=== PATIENT | female | born 1935 | race Caucasian/White ===

== ENCOUNTER 2020-02-22 13:09 | Emergency (ER) | payer MEDICARE, SELFPAY ==
[2020-02-22 13:12] VITALS: BP 205/110; PULSE 84; RESP 18; TEMP 36.3; O2SAT 93; BMI 25.6
--- NOTE | 2020-02-22 13:49 | EKG12_ITS ---
Test Reason : Blood Pressure : / mmHG Vent. Rate : 084 BPM Atrial Rate : 288 BPM P-R Int : 000 ms QRS Dur : 074 ms QT Int : 364 ms P-R-T Axes : 000 018 -52 degrees QTc Int : 430 ms Atrial Fibrillation Nonspecific ST & T wave abnormality Abnormal ECG Confirmed by CRAIG GONZALEZ, CARLOS ([id number]), book or script editor ALEISHA BRYAN ([id number]) on 02/26/2020 9:55:08 AM Referred By: ELYSE Confirmed By:CARLOS SRINIVASAN MD
--- NOTE | 2020-02-22 13:49 | CT_ITS ---
STUDY: CT ABDOMEN AND PELVIS WITH CONTRAST REASON FOR EXAM: Female, 84 years old. Bilateral flank pain nausea vomiting bloating RADIATION DOSAGE (If Supplied By Facility): CTDIvol = ( 8.86 ) mGy, DLP = ( 626.03 ) mGycm TECHNIQUE: CT images were obtained from the dome of the diaphragm to the symphysis pubis without oral contrast. Oral and amp; IV Gastrografin and amp; 100mL Isovue-300 was administered. Sagittal and coronal images were reconstructed. Individualized dose optimization techniques were used for this CT. COMPARISON: None. FINDINGS: Lung bases are clear. Right and left atria are severely enlarged. Solid organs are normal. There is no intestinal obstruction. Bladder is normal. Uterus is removed. There is no intra-abdominal free fluid, gas or inflammatory change. There are no abdominal hernias. Osseous structures are intact with scoliosis, spondylosis and osteoporosis. Stimulator device is implanted in the left posterior flank with leads descending into the thoracic spine. CT/Abdomen/Pelvis WITH Contrast IMPRESSION: No acute or focal abdominal findings. Biatrial enlargement. Echocardiography is advised. Electronically Signed: Yinka Perkins, at 16:06 EDT Tel , Service support ,
[2020-02-22] MEDS: 0.9% Normal Saline 1,000 ML 125 ML IV (14:20)
[2020-02-22] MEDS: Ondansetron 4 MG/2 ML Vial IV (14:20)
[2020-02-22 14:27] LABS: Absolute Lymphocyte Count 1.19 X10^3/uL (0.83-4.51); Absolute Neutrophil Count 6.6 X10^3/uL (2.0-7.7); Basophil# 0.03 X10^3/uL; Basophil% 0.3 % (0-1); Eosinophils% 1.1 % (0-5); Hematocrit 41.9 % (37-47); Hemoglobin 13.9 g/dL (12.0-15.0); Lymphocyte # 1.19 X10^3/ul (4.0); Lymphocyte % 13.5 % (19-41); Mean Corp Hgb Conc 33.2 g/dL (32-36); Mean Corpuscular Volume 96.5 fL (81-99); Mean Platelet Vol. 9.9 fl (6.2-12.0); Monocyte# 0.82 X10^3/uL; Monocyte% 9.3 % (0-10); NRBC Flagged by Analyzer 0 % (0-5); Neutrophil # 6.62 X10^3/uL (2.7-7.7); Neutrophil % 75.2 % (47-70); Platelet Count 271 K/mm3 (150-450); RBC Distribution Width CV 13.2 % (11.6-14.6); RBC Distribution Width SD 47.1 fl (35.1-43.9); Red Blood Count 4.34 M/mm3 (4.2-5.4); White Blood Count 8.8 K/mm3 (4.4-11.0)
[2020-02-22 14:41] LABS: ALB/GLOB Ratio 1.1 RATIO (0.9-2.4); AST(SGOT) 23 U/L (15-37); Alanine Aminotransfer ALT/SGPT 22 U/L (13-56); Alkaline Phosphatase 88 U/L (45-117); Anion Gap 7 (5-15); BUN 21 mg/dL (7-18); BUN/Creat Ratio 21.9 RATIO (10-20); Calcium,Total 9.3 mg/dL (8.5-10.1); Chloride 101 mmol/L (98-107); Creatinine, Serum 0.96 mg/dL (0.55-1.02); EST Glomerular Filtration Rate 59 mL/min (>60); Est Glom Filt Rate - Afr Amer 71 mL/min (>60); Estimated Creatinine Clearance 33.89 ml/min; Globulin 3.8 g/dL (2.2-4.2); Glucose 99 mg/dL (74-106); Lipase 123 U/L (73-393); Potassium 3.8 mmol/L (3.5-5.1); Protein, Total 7.8 g/dL (6.4-8.2); Sodium Level 137 mmol/L (136-145)
[2020-02-22 14:48] LABS: Lactic Acid 1.1 mmol/L (0.4-1.9)
[2020-02-22 15:09] LABS: Mucous, Urine 0 SEEN /hpf (<or=2+)
[2020-02-22 15:11] LABS: Color, Urine Yellow (Yellow); Glucose, Dipstick Normal (Normal); Ketone-Dipstick 5 mg/dl (Negative); Leukocyte Esterase-Dipstick 500 /ul (Negative); Nitrite-Dipstick Negative (Negative); Occult Blood-Urine 25 /ul (Negative); Protein-Dipstick Negative (Negative); Urine Bilirubin Dipstick Negative (Negative); Urine Clarity Sl. Cloudy (Clear); Urine Urobilinogen Normal (Normal)
[2020-02-22 15:17] LABS: Bacteria RARE /hpf (None Seen); Red Blood Cells-Urine 0-5 SEEN /hpf (0-5); Squamous Epithelial Cells - UA 0-5 SEEN /hpf (5-10); White Blood Cells 25-50 SEEN /hpf (0-5)
[2020-02-22 16:30] VITALS: BP 176/99; PULSE 74; RESP 16; O2SAT 97
--- NOTE | 2020-02-22 16:39 | ED.DCSUM_ITS ---
History of Present Illness Chief Complaint: Flank Pain Informant: Patient, Family - Abdominal Pain/Flank Pain Onset: Days Context: Gradual Onset Timing: Continuous Location: Diffuse - Nausea/Vomiting/Emesis GI Symptom: Nausea. Negative for: Vomiting - Diarrhea/Melena/Hematochezia GI Symptom: Negative for: Diarrhea, Melena, Hematochezia Associated Symptoms: Negative for: Dysuria, Frequency, Hematuria, Urgency Narrative: Patient is 84-year-old female presenting with abdominal discomfort. Patient states she has had abdominal pain and back pain for the past 2-1/2 weeks. She is been evaluated twice at [facility] emergency room, seen her primary care doctor and also been evaluated by her urologist. Patient actually had a cystoscopy 1 week ago for concern of hydronephrosis. Patient had CT scans contrast which initially were concerning for hydronephrosis which is why she had the cystoscopy. Patient states her back pain is gotten better but over the past 2 days she has had increased abdominal distention and discomfort. She has associated nausea with no vomiting. Her blood pressures also been a lot higher than normal. She does have a history of hypertension. She does have a family history of colon cancer with her brother and 2 cousins. She states she not hav ing diarrhea but has had thin dark stools. She has had colonoscopies in the past. Past Medical History - Allergies and Home Meds Allergies/Adverse Reactions: Allergies adhesive tape Allergy (Verified 02/22/20 13:14) Rash amoxicillin Allergy (Verified 02/22/20 13:14) Rash Primary Care Physician: ERIK GONZALEZ [Other] Past Medical History: - - Hypertension, atrial fibrillation Surgical History: appendectomy, cholecystectomy, hysterectomy, - - back stimulator Smoking Status: Never smoker Review of Systems General: Denies: Chills, Fever, Sweats Eyes: Denies: Visual changes - bilaterally, Diplopia ENT: Denies: Rhinorrhea, Sore throat Cardiovascular: Denies: Chest pain, Palpitations Respiratory: Denies: Dyspnea, Cough, Dyspnea on exertion Gastrointestinal: Reports: Abdominal pain, Nausea. Denies: Vomiting, Diarrhea, Constipation, Melena, Hematochezia Genitourinary: Denies: Dysuria, Hematuria, Frequency Musculoskeletal: Denies: Back pain, Extremity Pain Skin: Denies: Rash, Wounds Neurological: Denies: Headache, Weakness, Numbness Physical Exam Vital Signs/Narrative: Vital Signs Temp Pulse Resp BP Pulse Ox 02/22/20 13:12 97.4 F L 84 18 205/110 H 93 Inital Vital Signs reviewed: Yes General: Well nourished, Well developed, No Acute Distress Head: Normocephalic, Atraumatic Eyes: Perrl, EOMI ENT: Moist mucous membranes, No rhinorrhea Neck: Supple, Nontender Cardiovascular: Regular rate, Regular rhythm, No murmurs Respiratory: No distress, CTA bilaterally, Chest nontender Abdomen: Soft, Nontender, Normal bowel sounds, No masses, - - Mildly distended . Negative for: Guarding, Rebound tenderness, Pulsatile mass Back: Nontender, Normal Inspection. Negative for: CVA tenderness, Spinal tenderness Extremities: Nontender, No edema Skin: Normal color, No rash Neurological: Alert, Oriented x3, Cranial nerves II-XII grossly intact, Normal Strength, Normal Sensation Psychological: Normal affect, Normal Mood Diagnostic/Tx/Re-eval Clinical Impression(s) from Imaging Studies Abdomen/Pelvis CT 02/22/20 13:49 IMPRESSION: No acute or focal abdominal findings. Biatrial enlargement. Echocardiography is advised. Electronically Signed: Cheriexavi Maddie, at 16:06 EDT Tel , Service support , Laboratory Data 02/22/20 02/22/20 02/22/20 14:16 14:16 14:16 WBC 8.8 RBC 4.34 Hgb 13.9 Hct 41.9 MCV 96.5 MCH 32.0 MCHC 33.2 RDW Std Deviation 47.1 H RDW Coeff of Marjan 13.2 Plt Count 271 MPV 9.9 Immature Gran % (Auto) 0.600 Neut % (Auto) 75.2 H Lymph % (Auto) 13.5 L Jun[place] % (Auto) 9.3 Eos % (Auto) 1.1 Baso % (Auto) 0.3 Absolute Neuts (auto) 6.6 Absolute Lymphs (auto) 1.19 Nucleated RBC % 0 Sodium 137 Potassium 3.8 Chloride 101 Carbon Dioxide 29.0 Anion Gap 7 BUN 21 H Creatinine 0.96 Estim Creat Clear Calc 33.89 Est GFR (MDRD) Af Amer 71 Est GFR (MDRD) Non-Af 59 L BUN/Creatinine Ratio 21.9 H Glucose 99 Lactic Acid 1.1 Calcium 9.3 Total Bilirubin 0.50 AST 23 ALT 22 Alkaline Phosphatase 88 Troponin I < 0.015 Total Protein 7.8 Albumin 4.0 Globulin 3.8 Albumin/Globulin Ratio 1.1 Lipase 123 Urine Color Urine Clarity Urine pH Ur Specific Sterling Urine Protein Urine Glucose (UA) Urine Ketones Urine Occult Blood Urine Nitrite Urine Bilirubin Urine Urobilinogen Ur Leukocyte Esterase Urine RBC Urine WBC Ur Squamous Epith Cells Urine Bacteria Urine Mucus 02/22/20 15:03 WBC RBC Hgb Hct MCV MCH MCHC RDW Std Deviation RDW Coeff of Marjan Plt Count MPV Immature Gran % (Auto) Neut % (Auto) Lymph % (Auto) Jun[place] % (Auto) Eos % (Auto) Baso % (Auto) Absolute Neuts (auto) Absolute Lymphs (auto) Nucleated RBC % Sodium Potassium Chloride Carbon Dioxide Anion Gap BUN Creatinine Estim Creat Clear Calc Est GFR (MDRD) Af Amer Est GFR (MDRD) Non-Af BUN/Creatinine Ratio Glucose Lactic Acid Calcium Total Bilirubin AST ALT Alkaline Phosphatase Troponin I Total Protein Albumin Globulin Albumin/Globulin Ratio Lipase Urine Color Yellow Urine Clarity Sl. Cloudy Urine pH 7.0 Ur Specific Sterling 1.010 Urine Protein Negative Urine Glucose (UA) Normal Urine Ketones 5 H Urine Occult Blood 25 H Urine Nitrite Negative Urine Bilirubin Negative Urine Urobilinogen Normal Ur Leukocyte Esterase 500 H Urine RBC 0-5 SEEN Urine WBC 25-50 SEEN Ur Squamous Epith Cells 0-5 SEEN Urine Bacteria RARE Urine Mucus 0 SEEN - Rhythm Strip Rhythm Strip: A-fib Rate: 84 Ectopy: None - EKG Initial EKG Interpretation: Atrial Fibrillation, - - Fibrillation at a rate of 84 Normal axi s Normal intervals Normal ST segments - Medical Decision Making Patient is evaluated for increased abdominal distention and bloating. She has associated nausea. Over the past 2 weeks she has been worked up for back pain which was thought to be different kidney stones or hydronephrosis. This work- ups been largely negative. She is followed with urology and had cystoscopy. She feels more distended than normal. She is had multiple abdominal surgeries in the past. She appears nontoxic in no acute distress. Her vital signs are remarkable for hypertension. Patient's presentation not consistent with ruptured AAA, dissection or hypertensive emergency. Her abdomen is soft with no pulsatile mass. Nontender but mildly distended on exam. Recent prior CTs have been without contrast. CT of the abdomen pelvis with p.o. and IV contrast is obtained as well as baseline labs.CBC is normal. CMP is normal. Lipase is normal. Troponin is normal. Urinalysis does show 500 leukoesterase with 25-50 white blood cells however only rare bacteria seen. I wondered if this might be inflammatory changes from her recent cystoscopy. Urine culture is sent and patient denies any urinary symptoms so I would not treat her at this time. Patient is counseled on this and agreeable. She is also just recently treated for UTI. CT of the abdomen and pelvis does not show any acute intra-abdominal pathology. On my evaluation of the images I do think patient has some increased stool burden which might be contributing to her distention and discomfort. Patient states she does have problems with constipation and will be started on MiraLAX. She is instructed to follow-up with her primary care doctor later this week. She be discharged home with Zofran she is already taking Phenergan but does not feel that is helpful. Patient is counseled on signs and symptoms requiring return to the emergency room. Patient verbalizes agreement and understand this plan. Patient discharged home in stable and improved condition. ED Disposition - Plan for ED Patient: Disposition: Home or Assisted Living Diagnosis: Abdominal pain of unknown cause, Nausea Instructions: ED Abdominal Pain Unkn Cause Fem, ED Constipation Prescriptions: Ondansetron [Zofran Odt] 4 mg PO Q8H PRN PRN #10 tab PRN Reason: Nausea Prescription Printed Referrals: ERIK GONZALEZ [Other] Additional Instructions: I suspect you have some constipation with anterior abdominal discomfort and bloating. Please start taking MiraLAX, 1 spoonful daily, until you are having regular soft bowel movements. If you start having diarrhea he may decrease to every other day. Please follow-up with your primary care doctor later in the week for reevaluation. Your urine shows some signs of inflammation but not necessarily infection. Urine culture is pending and you will be contacted if you need antibiotics.
== END 2020-02-22 17:12 | disposition home or self-care (01) ==
PROVIDERS: Emergency Provider Emergency Medicine
DX: R10.9 Unspecified abdominal pain (principal); R11.0 Nausea; M54.9 Dorsalgia, unspecified; I10 Essential (primary) hypertension; I48.91 Unspecified atrial fibrillation; Z87.440 Personal history of urinary (tract) infections
CPT/HCPCS: 74177; 80053; 81001; 82274; 83605; 83690; 84484; 85025; 87086; 87088; 93005; 96361; 96374; 99285; J7030; Q9967; J2405